=== PATIENT | female | born 2000 | race African-American/Black ===

== ENCOUNTER → 2021-09-25 | Emergency (ER) | payer MEDICAID ==
[~2021-09-25] VITALS: Ht 177.8 cm; Wt 92.1 kg
[2021-09-25 15:11] VITALS: BP 127/75
== END | disposition left against medical advice (07) ==
LOC: ER 15:02
DX: M79.601 Pain in right arm (principal); Z53.21 Procedure and treatment not carried out due to patient leaving prior to being seen by health care provider